=== PATIENT | female | born 1960 | race Caucasian/White ===

== ENCOUNTER 2016-08-18 12:05 | Emergency (ER) | payer SELFPAY ==
[~2016-08-18] VITALS: Ht 172.7 cm; Wt 94.6 kg
[2016-08-18 13:06] LABS: ADD MIUA? NO; BILIRUBIN NEGATIVE; BLOOD NEGATIVE; COLOR STRAW ((YELLOW)); GLUCOSE (STRIP) NEGATIVE; KETONES NEGATIVE; LEUKOCYTES NEGATIVE; NITRITE NEGATIVE; PROTEIN (STRIP) NEGATIVE; SPECIFIC GRAVITY 1.004 (1.000-1.030); UCUL ADDED? NO; UROBILINOGEN 0.2 MG/DL (0.2-1.0)
[2016-08-18 13:32] LABS: HEMATOCRIT 37.5 % (36.0-46.0); MCH 24.9 PG (29.0-34.0); MCHC 31.7 G/DL (30.0-36.0); MCV 78.6 FL (83-99); MEAN PLAT.VOLUME 9.4 uM^3 (9.5-12.4); PLATELET COUNT 262 K/uL (156-360); RBC DIS.WIDTH-CV 16.7 % (11.8-14.6); RBC DIS.WIDTH-SD 47.7 % (39-53); RED BLOOD COUNT 4.77 M/uL (3.80-5.20); WHITE BLOOD COUNT 5.5 K/uL (4.1-10.2)
[2016-08-18 13:43] LABS: CHLORIDE 97 mEq/L (99-109); POTASSIUM 3.3 mEq/L (3.7-5.4); SODIUM 132 mEq/L (136-147)
[2016-08-18 13:44] LABS: GLUCOSE 89 mg/dL (70-99)
[2016-08-18 13:45] LABS: ANION GAP 10 MEQ/L (2-14)
[2016-08-18 13:46] LABS: TOTAL BILIRUBIN 0.6 mg/dL (0.0-1.0)
[2016-08-18 13:47] LABS: ALKALINE PHOSPHATASE 72 IU/L (3-129); GFR ESTIMATE (CALCULATED) > 59 mL/min/
[2016-08-18 13:48] LABS: UREA NITROGEN (BUN) 10 mg/dL (9-23)
[2016-08-18 13:51] LABS: LIPASE 15 U/L (1.0-51.0)
[2016-08-18 14:00] LABS: TROP-I INTERPRETATION NEGATIVE; TROPONIN-I < 0.01 ng/mL (0.0-0.30)
[2016-08-18 14:16] LABS: QUANTITATIVE HCG < 4.0 MIU/ML
[2016-08-18 16:00] LABS: TROP-I INTERPRETATION NEGATIVE; TROPONIN-I < 0.01 ng/mL (0.0-0.30)
[2016-08-18 16:19] VITALS: BP 132/72
== END 2016-08-18 16:20 | disposition home or self-care (01) ==
LOC: EME 12:05
PROVIDERS: Physician Assistant Medical
DX: R10.9 Unspecified abdominal pain (principal); K21.9 Gastro-esophageal reflux disease without esophagitis
CPT/HCPCS: 74022; 80053; 81003; 83690; 84484; 84702; 85027; 93005; 99281; 99284; J1885